=== PATIENT | male | born 1950 | race American Indian/Alaskan Native ===

== ENCOUNTER 2019-03-19 05:40 | Inpatient (IN) | payer MEDICARE ==
--- NOTE | 2019-03-07 10:08 | Anesthesia Consultation ---
Anesthesia Consult and Med Hx - Airway Anesthetic Teeth Evaluation: Poor (multiple missing teeth (upper) ) ROM Head & Neck: Adequate Mental/Hyoid Distance: Adequate Mallampati Class: Class II Intubation Access Assessment: Probably Good - Pulmonary Exam CTA: No (expiratory wheezing ) - Cardiac Exam Cardiac Exam: RRR - Pre-Operative Health Status ASA Pre-Surgery Classification: ASA3 Proposed Anesthetic Plan: General - Pulmonary Hx Smoking: Yes (1/2 PPD X 25 YRS) Hx Asthma: Yes ( CHILD ONLY) COPD: No Hx Pneumonia: Yes Hx Sleep Apnea: No (JUDY PRE SCREEN LOW RISK.) - Cardiovascular System Hx Hypertension: No - Gastrointestinal Hx Ulcer: Yes (PEPTIC) - Endocrine Hx End Stage Renal Disease: No - Other Systems Hx Alcohol Use: Yes (HX ABUSE , STILL DRINKS 3-4 DRINKS PER DAY) - Additional Comments Anesthesia Medical History Comments: chronic smoker w/ alcholism scheduled for prostatectomy; likely has underlying COPD per lung exam, smoking hx, and wheezing. may need breathing treatment prior to induction and higher MAC given alcohol history. premed w/ famotidine and multimodal analgesia
[2019-03-07 10:09] LABS: Mean Corpuscular HGB Conc 34 % (32-34); Mean Corpuscular Volume 94 fl (84-94); Platelet Count 205 K/mm3 (140-440); Red Blood Count 5.32 M/mm3 (3.65-5.03); Red Cell Distribution Width 16.4 % (13.2-15.2)
[2019-03-07 10:13] LABS: INR 0.86 (0.87-1.13)
[2019-03-07 10:46] LABS: Basophils % (Manual) 0 % (0.0-1.8); RBC Morphology Normal; Total Cells Counted 100
[2019-03-07 10:47] LABS: Platelet Estimate Consistent w Auto
[2019-03-07 12:58] LABS: Alanine Aminotransferase 15 units/L (7-56); Albumin 4.4 g/dL (3.9-5); BUN/Creatinine Ratio 8; Blood Urea Nitrogen 8 mg/dL (9-20); Calcium 9.4 mg/dL (8.4-10.2); Hemolysis Index 28
[2019-03-19] MEDS ORDERED: LACTATED RINGERS 1,000 ML ONE (07:23)
[2019-03-19] MEDS ORDERED: SUBLIMAZE ONE (07:29)
[2019-03-19] MEDS ORDERED: DIPRIVAN 10 MG/ML IV ONE (07:30)
[2019-03-19] MEDS ORDERED: BLOXIVERZ ONE ×2 (07:43→11:22)
[2019-03-19] MEDS ORDERED: PROAIR IH ONE (07:43)
[2019-03-19] MEDS ORDERED: ROBINUL ONE ×3 (07:43→11:24)
[2019-03-19] MEDS ORDERED: QUELICIN ONE ×2 (07:43→11:29)
[2019-03-19] MEDS ORDERED: NEO SYNEPHRINE/NS Syringe(OR USE) IV ONE (07:43)
[2019-03-19] MEDS ORDERED: NEO SYNEPHRINE ONE (07:43)
[2019-03-19] MEDS ORDERED: ZEMURON IV ONE ×2 (07:43→11:22)
[2019-03-19] MEDS ORDERED: XYLOCAINE MPF 2% ONE ×2 (07:43→11:25)
[2019-03-19] MEDS ORDERED: ZOFRAN ONE ×3 (07:44→11:24)
[2019-03-19] MEDS ORDERED: DECADRON ONE ×2 (07:44→11:22)
[2019-03-19] MEDS ORDERED: ACD-A 500 ML IV ONE (07:52)
[2019-03-19] MEDS ORDERED: CALCIUM CHLORIDE IV ONE (07:52)
[2019-03-19] MEDS ORDERED: THROMBIN (BOVINE) TP ONE (07:53)
[2019-03-19] MEDS ORDERED: NARCAN 0.4 MG/1 ML IV PRN ×3 (08:02→11:37)
[2019-03-19] MEDS ORDERED: ZOFRAN IV PRN (08:02)
[2019-03-19] MEDS ORDERED: SUBLIMAZE IV PRN ×2 (08:02→08:06)
--- NOTE | 2019-03-19 08:02 | Anesthesia Day of Surgery ---
Anesthesia Day of Surgery - Day of Surgery Patient Examined: Yes Patient H&P Reviewed: Yes Patient is NPO: Yes Beta Blockers: No Cardiac Clearance: No Pulmonary Clearance: No
[2019-03-19] MEDS ORDERED: DILAUDID IV PRN (08:06)
[2019-03-19] MEDS ORDERED: LACTATED RINGERS 1,000 ML IV SCH ×2 (09:00)
[2019-03-19] MEDS ORDERED: NACL 0.9% 500 ML 500 ML IV NR (09:00)
[2019-03-19] MEDS ORDERED: ANCEF/STERILE WATER 2 GM/20 ML IV NR (09:00)
[2019-03-19] MEDS ORDERED: ACD-A IV ONE (10:16)
[2019-03-19] MEDS ORDERED: NACL 0.9% IR ONE (10:16)
[2019-03-19] MEDS ORDERED: WATER FOR IRRIG STERILE IR ONE (10:16)
--- NOTE | 2019-03-19 10:20 | Post Anesthesia Evaluation ---
- Post Anesthesia Evaluation Patient Participated: Yes Airway Patent: Yes Stable Respiratory Function: Yes Nausea/Vomiting: No Temp > 96.8F: Yes Pain Manageable: Yes Adequeate Hydration: Yes Anesthesia Complications: No
[2019-03-19] MEDS ORDERED: LASIX ONE (11:21)
[2019-03-19] MEDS ORDERED: NORCO 5/325 PO PRN (11:37)
[2019-03-19] MEDS ORDERED: ZOFRAN ODT PO PRN (11:37)
[2019-03-19] MEDS ORDERED: AMBIEN PO PRN (11:42)
[2019-03-19] MEDS: DILAUDID IV PRN ×2 (11:50→12:00)
[2019-03-19] MEDS: ANCEF/NS 1 GM/50 ML 1 GM/50 ML BAG IV SCH ×2 (13:30→22:05)
--- NOTE | 2019-03-19 14:04 | Operative Report ---
PREOPERATIVE DIAGNOSIS: Adenocarcinoma of the prostate. POSTOPERATIVE DIAGNOSIS: Adenocarcinoma of the prostate. PROCEDURE: Radical retropubic prostatectomy. SURGEON: Dileep Sutherland MD and Dr. Medeiros. ANESTHESIA: General. FINDINGS: This is a gentleman with extensive prostate cancer. He has had upper abdominal surgery with meshes around the umbilicus. He elected for open surgery. DESCRIPTION OF PROCEDURE: The patient was brought to the operating room and placed on the operating table. Following induction of anesthesia, placed in supine position over the break of the table, prepped and draped in usual sterile fashion. A midline incision was made after a Raya catheter was inserted. It was carried through the skin and superficial fascia to the rectus sheath. The sheath was opened and the midline was developed. The space of Retzius was developed and both obturator nerves and iliac vessels were visualized. There were no significant raza disease noted. A retractor was placed and the endopelvic fascia was opened and puboprostatic ligaments were taken down. We placed a S-clamp around the dorsal venous complex and tied the dorsal venous complex and then oversewed it with a #1 Vicryl. Hemostasis was excellent. The dorsal venous complex was divided and we dissected the urethra free. We then placed an umbilical tape underneath the urethra and opened it part way. We placed 6 sutures with the Capio device in the urethra to be used later on. The posterior urethra was divided and an excellent plane was developed between the rectum and the prostate. Careful attention was made to make sure that the rectum was not injured and looked like everything was in good position. Using right angle clamps and a Em clamp. Pedicles were taken on each side and clipped with a right angle clips. The patient tolerated the procedure well. Wound was irrigated. Excellent hemostasis. Once we dissected the pedicles. [place]onvilliers was opened behind the seminal vesicles and vasa and these were dissected free, first on the right side, then on the left side. Small clips were used for small vessels around the seminal vesicles and vas. Once that was removed, we were able to retract the prostate and using the cautery dissected the prostate free of the surrounding fascia and then opened the bladder neck minimally and so a small little middle lobe, which was dissected free and the specimen was removed. The bladder neck was everted with 3-0 chromic and 1 suture at the 12 o'clock apex with 3-0 Vicryl and 1 suture at the 12 o'clock apex with a 2-0 Vicryl. The patient tolerated the procedure well. Bladder was irrigated. Wound was irrigated. The anastomosis was then performed with an empty needle lara with silk sutures over a Silastic catheter, which we checked the balloon. The patient tolerated the procedure well. The anastomosis was tied. A LADONNA was placed in the space of Retzius. Wound was irrigated. We used Tisseel and muscle was approximated with 3-0 Vicryl, fascia with looped PDS and skin with clips. The patient tolerated the procedure well. Estimated blood loss 400 mL, brought to recovery room with a Raya and a LADONNA in stable condition. JOB# [id number] [place]ERIE
--- NOTE | 2019-03-19 14:45 | Post Operative Note ---
Date of procedure: 03/19/19 Pre-op diagnosis: CAP Post-op diagnosis: same Findings: same Procedure: RRP Anesthesia: GETA Surgeon: DAVID URIAS Orthopedic Assistant: RACHELE RIVERO Estimated blood loss: other (400) Pathology: list (prostate) Specimen disposition: to lab Condition: stable Disposition: PACU
[2019-03-19] MEDS: MORPHINE IV PRN (20:40)
[2019-03-19] MEDS: D5W/0.45% NACL/KCL 20 MEQ 20 MEQ/1,000 ML BAG IV SCH (21:52)
[2019-03-20] MEDS: MORPHINE IV PRN ×2 (03:06→15:52)
[2019-03-20] MEDS: D5W/0.45% NACL/KCL 20 MEQ 20 MEQ/1,000 ML BAG IV SCH ×2 (05:33→15:53)
[2019-03-20 06:00] LABS: Basophils # (Auto) 0.1 K/mm3 (0.0-0.1); Basophils % (Auto) 0.7 % (0.0-1.8); Hematocrit 41.9 % (35.5-45.6); Hemoglobin 14.3 gm/dl (11.8-15.2); Lymphocytes # (Auto) 0.7 K/mm3 (1.2-5.4); Lymphocytes % (Auto) 7.3 % (13.4-35.0); Mean Corpuscular HGB Conc 34 % (32-34); Mean Corpuscular Volume 93 fl (84-94); Monocytes # (Auto) 0.7 K/mm3 (0.0-0.8); Monocytes % (Auto) 8.1 % (0.0-7.3); Platelet Count 169 K/mm3 (140-440); Red Blood Count 4.48 M/mm3 (3.65-5.03); Red Cell Distribution Width 15.8 % (13.2-15.2)
[2019-03-20 06:27] LABS: BUN/Creatinine Ratio 10; Blood Urea Nitrogen 10 mg/dL (9-20); Calcium 8.3 mg/dL (8.4-10.2); Hemolysis Index 5
--- NOTE | 2019-03-20 07:11 | Consultation ---
History of Present Illness - Reason for Consult Consult date: 03/19/19 Medical management Requesting physician: DAVID URIAS - History of Present Illness S/p prostate surgery Postop doing well Past History Past Medical History: COPD, GERD, other (Etoh dependence) Past Surgical History: Other (Prostatectomy ) Social history: lives with family, smoking, alcohol abuse, full code Family history: hypertension Medications and Allergies Allergies Allergy/AdvReac Type Severity Reaction Status Date / Time No Known Allergies Allergy Verified 02/27/19 16:53 Home Medications Medication Instructions Recorded Confirmed Last Taken Type No Known Home Medications [No 02/27/19 02/27/19 Unknown History Reported Home Medications] Active Meds: Active Medications Acetaminophen/Hydrocodone Bitart ([place] 5/325) 2 each PO Q4H PRN PRN Reason: Pain, Moderate (4-6) Lactated Ringer's (Lactated Ringers) 1,000 mls @ 42 mls/hr IV DIRECT SHIREEN Last Admin: 03/19/19 07:20 Dose: 42 mls/hr Documented by: Potassium Chloride/Dextrose/Sod Cl (D5w/0.45% Nacl/Kcl 20 Meq) 20 meq in 1,000 mls @ 125 mls/hr IV DIRECT SHIREEN Last Admin: 03/20/19 05:33 Dose: 125 mls/hr Documented by: Morphine Sulfate (Morphine) 2 mg IV Q4H PRN PRN Reason: Pain, Moderate (4-6) Last Admin: 03/20/19 03:06 Dose: 2 mg Documented by: Naloxone HCl (Narcan 0.4 Mg/1 Ml) 0.1 mg IV Q2MIN PRN PRN Reason: Res Rate </= 8 or 02 SAT < 92% Naloxone HCl (Narcan 0.4 Mg/1 Ml) 0.1 mg IV Q2MIN PRN PRN Reason: Res Rate </= 8 or 02 SAT < 92% Ondansetron HCl (Zofran) 4 mg IV ONCE PRN PRN Reason: Nausea And Vomiting Ondansetron HCl (Zofran Odt) 4 mg PO Q8H PRN PRN Reason: Nausea And Vomiting Last Admin: 03/19/19 17:32 Dose: 4 mg Documented by: Zolpidem Tartrate (Ambien) 5 mg PO QHS PRN PRN Reason: Sleep Review of Systems All systems: negative Exam - Constitutional Vitals: Temp Pulse Resp BP Pulse Ox 97.7 F 81 19 121/75 97 03/20/19 04:27 03/20/19 04:27 03/20/19 04:27 03/20/19 04:27 03/20/19 04:27 General appearance: Present: no acute distress, well-nourished - EENT Eyes: Present: PERRL ENT: hearing intact, clear oral mucosa - Neck Neck: Present: supple, normal ROM - Respiratory Respiratory effort: normal Respiratory: bilateral: CTA - Cardiovascular Rhythm: regular Heart Sounds: Present: S1 & S2. Absent: rub, click - Extremities Extremities: pulses symmetrical, No edema Peripheral Pulses: within normal limits - Abdominal General gastrointestinal: Present: soft, non-tender, non-distended, normal bowel sounds Male genitourinary: Present: normal - Rectal Rectal Exam: deferred - Integumentary Integumentary: Present: clear, warm, dry - Musculoskeletal Musculoskeletal: gait normal, strength equal bilaterally - Psychiatric Psychiatric: appropriate mood/affect, intact judgment & insight - Neurologic Neurologic: CNII-XII intact, moves all extremities - Allied Health Allied health notes reviewed: nursing, case management Results - Labs CBC & Chem 7: 03/20/19 05:36 03/20/19 05:36 Labs: Abnormal lab results 03/19/19 03/20/19 03/20/19 Range/Units 06:35 05:36 05:36 RDW 15.8 H (13.2-15.2) % Lymph % (Auto) 7.3 L (13.4-35.0) % [place] % (Auto) 8.1 H (0.0-7.3) % Lymph # 0.7 L (1.2-5.4) K/mm3 Seg Neutrophils % 83.9 H (40.0-70.0) % Glucose 139 H (75-100) mg/dL Calcium 8.3 L (8.4-10.2) mg/dL Crossmatch See Detail - Imaging and Cardiology EKG: report reviewed Assessment and Plan - Patient Problems (1) Alcohol abuse Current Visit: No Status: Chronic Plan to address problem: Ciwa protocol if necessary (2) Tobacco abuse Current Visit: No Status: Chronic Plan to address problem: Nicoderm patch Counselled (3) COPD (chronic obstructive pulmonary disease) Current Visit: Yes Status: Chronic Qualifiers: Emphysema type: unspecified Plan to address problem: Duonebs prn (4) GERD (gastroesophageal reflux disease) Current Visit: Yes Status: Chronic Qualifiers: Esophagitis presence: without esophagitis Qualified Code(s): K21.9 - Gastro-esophageal reflux disease without esophagitis Plan to address problem: Protonix qd (5) DVT prophylaxis Current Visit: No Status: Acute Plan to address problem: On SCD's and GI prophylaxis
[2019-03-20] MEDS ORDERED: DUONEB *Not for PRN Use IH (07:21)
[2019-03-20] MEDS ORDERED: HABITROL TD ONE (09:00)
--- NOTE | 2019-03-20 12:45 | Progress Note ---
Assessment and Plan looks well j/p min lan clear labs good oob Subjective Date of service: 03/20/19 Principal diagnosis: cap Objective - Constitutional Vitals: Vital Signs - 12hr 03/20/19 03/20/19 03/20/19 04:27 07:00 11:50 Temperature 97.7 F 97.9 F 98.4 F Pulse Rate 81 71 73 Respiratory 19 26 H 19 Rate Blood Pressure 121/75 Blood Pressure 111/63 105/60 [Right] O2 Sat by Pulse 97 98 97 Oximetry General appearance: Present: no acute distress - Neck Neck: supple - Respiratory Respiratory effort: normal Extremities: no ischemia - Gastrointestinal General gastrointestinal: Present: soft, other (incisional tender ) - Labs CBC & Chem 7: 03/20/19 05:36 03/20/19 05:36 Labs: Abnormal lab results 03/19/19 03/20/19 03/20/19 Range/Units 06:35 05:36 05:36 RDW 15.8 H (13.2-15.2) % Lymph % (Auto) 7.3 L (13.4-35.0) % [place] % (Auto) 8.1 H (0.0-7.3) % Lymph # 0.7 L (1.2-5.4) K/mm3 Seg Neutrophils % 83.9 H (40.0-70.0) % Glucose 139 H (75-100) mg/dL Calcium 8.3 L (8.4-10.2) mg/dL Crossmatch See Detail Medications & Allergies - Medications Allergies/Adverse Reactions: Allergies No Known Allergies Allergy (Verified 02/27/19 16:53) Home Medications: Home Medications Medication Instructions Recorded Confirmed Last Taken Type No Known Home Medications [No 02/27/19 02/27/19 Unknown History Reported Home Medications] Active Medications: Generic Name Dose Route Start Last Admin Trade Name Freq PRN Reason Stop Dose Admin Acetaminophen/Hydrocodone Bitart 2 each 03/19/19 11:37 [place] 5/325 PO Q4H PRN Pain, Moderate (4-6) Albuterol 2.5 mg 03/20/19 09:10 Proventil IH Q4HRT PRN Shortness Of Breath Lactated Ringer's 1,000 mls @ 42 mls/hr 03/19/19 09:00 03/19/19 07:20 Lactated Ringers IV 42 mls/hr DIRECT SHIREEN Administration Potassium Chloride/Dextrose/Sod Cl 20 meq in 1,000 mls @ 125 mls/hr 03/19/19 12:00 03/20/19 05:33 D5w/0.45% Nacl/Kcl 20 Meq IV 125 mls/hr DIRECT SHIREEN Administration Morphine Sulfate 2 mg 03/19/19 11:37 03/20/19 03:06 Morphine IV 2 mg Q4H PRN Administration Pain, Moderate (4-6) Naloxone HCl 0.1 mg 03/19/19 08:06 Narcan 0.4 Mg/1 Ml IV Q2MIN PRN Res Rate </= 8 or 02 SAT < 92% Naloxone HCl 0.1 mg 03/19/19 11:37 Narcan 0.4 Mg/1 Ml IV Q2MIN PRN Res Rate </= 8 or 02 SAT < 92% Ondansetron HCl 4 mg 03/19/19 08:02 Zofran IV ONCE PRN Nausea And Vomiting Ondansetron HCl 4 mg 03/19/19 11:37 03/19/19 17:32 Zofran Odt PO 4 mg Q8H PRN Administration Nausea And Vomiting Zolpidem Tartrate 5 mg 03/19/19 11:42 Ambien PO QHS PRN Sleep
--- NOTE | 2019-03-20 16:06 | Progress Note ---
Assessment and Plan - Patient Problems (1) Alcohol abuse Current Visit: No Status: Chronic Plan to address problem: Ciwa protocol if necessary (2) Tobacco abuse Current Visit: No Status: Chronic Plan to address problem: Nicoderm patch Counselled (3) COPD (chronic obstructive pulmonary disease) Current Visit: Yes Status: Chronic Qualifiers: Emphysema type: unspecified Plan to address problem: Duonebs prn (4) GERD (gastroesophageal reflux disease) Current Visit: Yes Status: Chronic Qualifiers: Esophagitis presence: without esophagitis Qualified Code(s): K21.9 - Gastro-esophageal reflux disease without esophagitis Plan to address problem: Protonix qd (5) DVT prophylaxis Current Visit: No Status: Acute Plan to address problem: On SCD's and GI prophylaxis Subjective Date of service: 03/20/19 Principal diagnosis: cap Interval history: Doing well Objective - Constitutional Vitals: Vital Signs - 12hr 03/20/19 03/20/19 03/20/19 04:27 07:00 11:50 Temperature 97.7 F 97.9 F 98.4 F Pulse Rate 81 71 73 Respiratory 19 26 H 19 Rate Blood Pressure 121/75 Blood Pressure 111/63 105/60 [Right] O2 Sat by Pulse 97 98 97 Oximetry 03/20/19 14:08 Temperature Pulse Rate Respiratory Rate Blood Pressure Blood Pressure [Right] O2 Sat by Pulse 99 Oximetry General appearance: Present: no acute distress, well-nourished - EENT Eyes: PERRL, EOM intact ENT: hearing intact, clear oral mucosa Ears: bilateral: normal - Neck Neck: supple, normal ROM - Respiratory Respiratory effort: normal Respiratory: bilateral: CTA - Breasts Breasts: normal - Cardiovascular Heart rate: 76 Rhythm: regular Heart Sounds: Present: S1 & S2. Absent: gallop, rub Extremities: pulses intact, No edema, normal color, Full ROM - Gastrointestinal General gastrointestinal: Present: soft, non-tender, non-distended, normal bowel sounds - Genitourinary Male genitourinary: normal - Integumentary Integumentary: clear, warm, dry - Musculoskeletal Musculoskeletal: 1, strength equal bilaterally - Neurologic Neurologic: moves all extremities - Psychiatric Psychiatric: memory intact, appropriate mood/affect, intact judgment & insight - Labs CBC & Chem 7: 03/20/19 05:36 03/20/19 05:36 Labs: Abnormal lab results 03/19/19 03/20/19 03/20/19 Range/Units 06:35 05:36 05:36 RDW 15.8 H (13.2-15.2) % Lymph % (Auto) 7.3 L (13.4-35.0) % [place] % (Auto) 8.1 H (0.0-7.3) % Lymph # 0.7 L (1.2-5.4) K/mm3 Seg Neutrophils % 83.9 H (40.0-70.0) % Glucose 139 H (75-100) mg/dL Calcium 8.3 L (8.4-10.2) mg/dL Crossmatch See Detail
[2019-03-21] MEDS: D5W/0.45% NACL/KCL 20 MEQ 20 MEQ/1,000 ML BAG IV SCH ×4 (00:11→16:09)
[2019-03-21 05:04] LABS: Basophils % (Auto) 0.1 % (0.0-1.8); Eosinophils % (Auto) 0.9 % (0.0-4.3); Hematocrit 41.9 % (35.5-45.6); Hemoglobin 14.4 gm/dl (11.8-15.2); Lymphocytes % (Auto) 18.6 % (13.4-35.0); Mean Corpuscular HGB Conc 34 % (32-34); Mean Corpuscular Volume 93 fl (84-94); Monocytes # (Auto) 0.6 K/mm3 (0.0-0.8); Monocytes % (Auto) 10.7 % (0.0-7.3); Platelet Count 169 K/mm3 (140-440); Red Blood Count 4.49 M/mm3 (3.65-5.03); Red Cell Distribution Width 16.2 % (13.2-15.2)
[2019-03-21] MEDS: MORPHINE IV PRN ×2 (05:13→10:26)
--- NOTE | 2019-03-21 08:46 | Progress Note ---
Assessment and Plan - Patient Problems (1) Alcohol abuse Current Visit: No Status: Chronic Plan to address problem: Ciwa protocol if necessary (2) Tobacco abuse Current Visit: No Status: Chronic Plan to address problem: Nicoderm patch Counselled (3) COPD (chronic obstructive pulmonary disease) Current Visit: Yes Status: Chronic Qualifiers: Emphysema type: unspecified Plan to address problem: Duonebs prn (4) GERD (gastroesophageal reflux disease) Current Visit: Yes Status: Chronic Qualifiers: Esophagitis presence: without esophagitis Qualified Code(s): K21.9 - Gastro-esophageal reflux disease without esophagitis Plan to address problem: Protonix qd (5) DVT prophylaxis Current Visit: No Status: Acute Plan to address problem: On SCD's and GI prophylaxis Subjective Date of service: 03/21/19 Principal diagnosis: cap Interval history: Doing well Objective - Constitutional Vitals: Vital Signs - 12hr 03/20/19 03/20/19 03/21/19 21:46 23:57 00:00 Temperature 98.4 F Pulse Rate 86 Respiratory 18 20 Rate Blood Pressure 125/77 Blood Pressure [Right] O2 Sat by Pulse 97 93 Oximetry 03/21/19 03/21/19 04:34 07:25 Temperature 98.0 F 99.9 F H Pulse Rate 77 85 Respiratory 18 18 Rate Blood Pressure 122/78 Blood Pressure 136/84 [Right] O2 Sat by Pulse 99 99 Oximetry General appearance: Present: no acute distress, well-nourished - EENT Eyes: PERRL, EOM intact ENT: hearing intact, clear oral mucosa Ears: bilateral: normal - Neck Neck: supple, normal ROM - Respiratory Respiratory effort: normal Respiratory: bilateral: CTA - Breasts Breasts: normal - Cardiovascular Heart rate: 78 Rhythm: regular Heart Sounds: Present: S1 & S2. Absent: gallop, rub Extremities: pulses intact, No edema, normal color, Full ROM - Gastrointestinal General gastrointestinal: Present: soft, non-tender, non-distended, normal bowel sounds Rectal Exam: deferred - Genitourinary Male genitourinary: normal - Integumentary Integumentary: clear, warm, dry - Musculoskeletal Musculoskeletal: 1, strength equal bilaterally - Neurologic Neurologic: moves all extremities - Psychiatric Psychiatric: memory intact, appropriate mood/affect, intact judgment & insight - Labs CBC & Chem 7: 03/21/19 04:27 03/20/19 05:36 Labs: Abnormal lab results 03/21/19 Range/Units 04:27 RDW 16.2 H (13.2-15.2) % [place] % (Auto) 10.7 H (0.0-7.3) % Lymph # 1.0 L (1.2-5.4) K/mm3
[2019-03-21] MEDS ORDERED: CITRATE OF MAGNESIA PO ONE (14:38)
--- NOTE | 2019-03-21 14:38 | Progress Note ---
Assessment and Plan no bm as yet urine clear eleni out home in amd oob Subjective Date of service: 03/21/19 Principal diagnosis: cap Objective - Constitutional Vitals: Vital Signs - 12hr 03/21/19 03/21/19 03/21/19 04:34 07:25 08:55 Temperature 98.0 F 99.9 F H Pulse Rate 77 85 Respiratory 18 18 Rate Blood Pressure 122/78 Blood Pressure 136/84 [Right] O2 Sat by Pulse 99 99 96 Oximetry 03/21/19 12:10 Temperature 99.4 F Pulse Rate 84 Respiratory 18 Rate Blood Pressure Blood Pressure 124/76 [Right] O2 Sat by Pulse 97 Oximetry General appearance: Present: no acute distress - Neck Neck: supple - Respiratory Respiratory effort: normal Extremities: no ischemia - Gastrointestinal General gastrointestinal: Present: soft, tender - Labs CBC & Chem 7: 03/21/19 04:27 03/20/19 05:36 Labs: Abnormal lab results 03/21/19 Range/Units 04:27 RDW 16.2 H (13.2-15.2) % [place] % (Auto) 10.7 H (0.0-7.3) % Lymph # 1.0 L (1.2-5.4) K/mm3 Medications & Allergies - Medications Allergies/Adverse Reactions: Allergies No Known Allergies Allergy (Verified 02/27/19 16:53) Home Medications: Home Medications Medication Instructions Recorded Confirmed Last Taken Type No Known Home Medications [No 02/27/19 02/27/19 Unknown History Reported Home Medications] Active Medications: Generic Name Dose Route Start Last Admin Trade Name Freq PRN Reason Stop Dose Admin Acetaminophen/Hydrocodone Bitart 2 each 03/19/19 11:37 03/20/19 21:16 [place] 5/325 PO 2 each Q4H PRN Administration Pain, Moderate (4-6) Albuterol 2.5 mg 03/20/19 09:10 Proventil IH Q4HRT PRN Shortness Of Breath Lactated Ringer's 1,000 mls @ 42 mls/hr 03/19/19 09:00 03/19/19 07:20 Lactated Ringers IV 42 mls/hr DIRECT SHIREEN Administration Potassium Chloride/Dextrose/Sod Cl 20 meq in 1,000 mls @ 125 mls/hr 03/19/19 12:00 03/21/19 07:49 D5w/0.45% Nacl/Kcl 20 Meq IV 125 mls/hr DIRECT SHIREEN Administration Morphine Sulfate 2 mg 03/19/19 11:37 03/21/19 10:26 Morphine IV 2 mg Q4H PRN Administration Pain, Moderate (4-6) Naloxone HCl 0.1 mg 03/19/19 11:37 Narcan 0.4 Mg/1 Ml IV Q2MIN PRN Res Rate </= 8 or 02 SAT < 92% Ondansetron HCl 4 mg 03/19/19 08:02 Zofran IV ONCE PRN Nausea And Vomiting Ondansetron HCl 4 mg 03/19/19 11:37 03/19/19 17:32 Zofran Odt PO 4 mg Q8H PRN Administration Nausea And Vomiting Zolpidem Tartrate 5 mg 03/19/19 11:42 03/20/19 22:32 Ambien PO 5 mg QHS PRN Administration Sleep
[2019-03-21] MEDS: PROVENTIL IH PRN (16:52)
[2019-03-22] MEDS: D5W/0.45% NACL/KCL 20 MEQ 20 MEQ/1,000 ML BAG IV SCH (02:03)
[2019-03-22] MEDS: PROVENTIL IH PRN (05:35)
[2019-03-22 07:50] VITALS: BP 136/84
--- NOTE | 2019-03-22 09:08 | Progress Note ---
Assessment and Plan lan clear home with cath Subjective Date of service: 03/22/19 Principal diagnosis: cap Objective - Constitutional Vitals: Vital Signs - 12hr 03/21/19 03/22/19 03/22/19 22:00 00:00 00:20 Temperature 99.4 F Pulse Rate 85 Pulse Rate [ Anterior Bilateral Upper Lobe] Respiratory 17 17 Rate Respiratory Rate [Anterior Bilateral Upper Lobe] Blood Pressure 141/86 Blood Pressure [Right] O2 Sat by Pulse 97 97 Oximetry 03/22/19 03/22/19 03/22/19 00:21 04:42 04:55 Temperature 98.6 F Pulse Rate 86 87 Pulse Rate [ 94 H Anterior Bilateral Upper Lobe] Respiratory 17 Rate Respiratory 20 Rate [Anterior Bilateral Upper Lobe] Blood Pressure 130/84 Blood Pressure [Right] O2 Sat by Pulse 97 97 Oximetry 03/22/19 03/22/19 03/22/19 05:05 07:19 07:55 Temperature 98.0 F 98 F Pulse Rate 87 Pulse Rate [ 95 H Anterior Bilateral Upper Lobe] Respiratory 16 16 Rate Respiratory 20 Rate [Anterior Bilateral Upper Lobe] Blood Pressure 136/84 Blood Pressure 136/84 [Right] O2 Sat by Pulse 98 Oximetry General appearance: Present: no acute distress - Neck Neck: supple Extremities: no ischemia - Gastrointestinal General gastrointestinal: Present: soft - Labs CBC & Chem 7: 03/21/19 04:27 03/20/19 05:36 Medications & Allergies - Medications Allergies/Adverse Reactions: Allergies No Known Allergies Allergy (Verified 02/27/19 16:53) Home Medications: Home Medications Medication Instructions Recorded Confirmed Last Taken Type No Known Home Medications [No 02/27/19 02/27/19 Unknown History Reported Home Medications] Active Medications: Generic Name Dose Route Start Last Admin Trade Name Freq PRN Reason Stop Dose Admin Acetaminophen/Hydrocodone Bitart 2 each 03/19/19 11:37 03/20/19 21:16 [place] 5/325 PO 2 each Q4H PRN Administration Pain, Moderate (4-6) Albuterol 2.5 mg 03/20/19 09:10 03/22/19 05:35 Proventil IH 2.5 mg Q4HRT PRN Administration Shortness Of Breath Lactated Ringer's 1,000 mls @ 42 mls/hr 03/19/19 09:00 03/19/19 07:20 Lactated Ringers IV 42 mls/hr DIRECT SHIREEN Administration Potassium Chloride/Dextrose/Sod Cl 20 meq in 1,000 mls @ 125 mls/hr 03/19/19 12:00 03/22/19 02:03 D5w/0.45% Nacl/Kcl 20 Meq IV 125 mls/hr DIRECT SHIREEN Administration Morphine Sulfate 2 mg 03/19/19 11:37 03/21/19 10:26 Morphine IV 2 mg Q4H PRN Administration Pain, Moderate (4-6) Naloxone HCl 0.1 mg 03/19/19 11:37 Narcan 0.4 Mg/1 Ml IV Q2MIN PRN Res Rate </= 8 or 02 SAT < 92% Ondansetron HCl 4 mg 03/19/19 08:02 Zofran IV ONCE PRN Nausea And Vomiting Ondansetron HCl 4 mg 03/19/19 11:37 03/19/19 17:32 Zofran Odt PO 4 mg Q8H PRN Administration Nausea And Vomiting Zolpidem Tartrate 5 mg 03/19/19 11:42 03/20/19 22:32 Ambien PO 5 mg QHS PRN Administration Sleep
--- NOTE | 2019-03-22 09:10 | Discharge Summary ---
Providers - Providers Date of Admission: 03/19/19 08:05 Date of discharge: 03/22/19 Attending physician: DAVID URIAS 03/19/19 11:37 Consult to Physician [CONS] Routine Comment: Consulting Provider: CARLENE RAMÍREZ Physician Instructions: Reason For Exam: hypertension Primary care physician: MAYNOR GRIGGS Hospitalization Condition: Good Pertinent studies: rrp Procedures: prostatectomy Disposition: DC-01 TO HOME OR SELFCARE Core Measure Documentation - Palliative Care Palliative Care/ Comfort Measures: Not Applicable - Core Measures Any of the following diagnoses?: none - VTE Discharge Requirements Contraindication No Overlap Therapy order at DC: Not Indicated Exam - Constitutional Vitals: Temp Pulse Resp BP Pulse Ox 98 F 87 16 136/84 98 03/22/19 07:55 03/22/19 07:55 03/22/19 07:55 03/22/19 07:55 03/22/19 07:55 General appearance: Present: no acute distress - Respiratory Respiratory effort: normal Plan Activity: other (no straining ) Weight Bearing Status: Full Weight Bearing Diet: low fat, low salt Wound: open to air Special Instructions: other (teach lan care ) Durable Medical Equipment Needed Upon Discharge: other (lan ) Follow up with: MAYNOR GRIGGS MD [Primary Care Provider] - 7 Days DAVID URIAS MD [Staff Physician] - 10 Days
== END 2019-03-22 12:00 | disposition home or self-care (01) | DRG 708 ==
LOC: 3A 05:40 → UNDOADMIN 05:40 → EDSTATUS 08:00 → 3A 08:05 → 3B-SURG 11:48
PROVIDERS: ADMIT Urology; ATTEND Urology
PROC: 0VT00ZZ Resection of Prostate, Open Approach (ICD-10-PCS; principal; 2019-03-19)
DX: C61 Malignant neoplasm of prostate (principal); F17.210 Nicotine dependence, cigarettes, uncomplicated; J45.909 Unspecified asthma, uncomplicated; J44.9 Chronic obstructive pulmonary disease, unspecified; K21.9 Gastro-esophageal reflux disease without esophagitis; F10.20 Alcohol dependence, uncomplicated; I10 Essential (primary) hypertension
CPT/HCPCS: 36415; 80048; 80053; 82962; 85007; 85025; 85610; 85730; 86850; 86870; 86900; 86901; 86920; 88309; 88341; 88342; 88344; 94640; 94760; G0378; C9250; J0330; J0690; J1100; J1170; J1940; J2270; J2370; J2405; J2704; J2710; J3010; J7120; Q0162